=== PATIENT | male | born 1985 | race Caucasian/White ===

== ENCOUNTER 2017-08-31 01:07 | Emergency (ER) | payer SELFPAY ==
[~2017-08-31] VITALS: Ht 172.7 cm; Wt 77.1 kg
[~2017-08-31 01:07] MED LIST: AUGMENTIN 875875 MG PO; FLEXERIL10 MG PO; MEDROL DOSEPAK4 MG PO; MOTRIN800 MG PO; PREDNISONE50 MG PO
[2017-08-31 02:25] LABS: BASO # 0.1 10*3/uL (0.0-0.1); BASO % 0.5 % (0.0-1.0); EOS # 0.1 10*3/uL (0.0-0.4); EOS % 0.5 % (1.0-4.0); HEMATOCRIT 42.3 % (42.0-52.0); HEMOGLOBIN 14.9 g/dl (14.0-18.0); LYMPH # 1.3 10*3/uL (1.3-4.4); LYMPH % 10.1 % (27.0-41.0); MEAN CELL VOLUME 86.3 fl (80.0-94.0); MEAN CORPUSCULAR HGB 30.4 pg (27.0-31.0); MEAN CORPUSCULAR HGB CONC 35.2 g/dl (33.0-37.0); MEAN PLATELET VOLUME 10.4 fl (9.6-12.3); MONO # 0.7 10*3/uL (0.1-1.0); MONO % 5.4 % (3.0-9.0); NEUT # 10.8 10*3/uL (2.3-7.9); NEUT % 83.3 % (47.0-73.0); PLATELET COUNT AUTOMATED 267 10*3/uL (130-400)
[2017-08-31 02:36] LABS: ACT PARTIAL THROMBO TIME 23.1 SECONDS (20.8-31.5)
[2017-08-31 02:39] LABS: ALBUMIN 4.1 gm/dl (3.1-4.5); ALKALINE PHOSPHATASE 46 U/L (45-117); BUN 8 mg/dl (7-24); CHLORIDE 111 mmol/L (98-107); CREATININE 0.98 mg/dL (0.70-1.30); LIPASE 298 U/L (73-393); POTASSIUM 3.8 mmol/L (3.5-5.1); SGOT/AST 11 IU/L (3-35); SGPT/ALT 23 U/L (12-78); SODIUM 147 mmol/L (136-145); TOTAL PROTEIN 7.1 gm/dL (6.4-8.2)
[2017-08-31 03:30] LABS: BILIRUBIN NEGATIVE (NEGATIVE); BLOOD NEGATIVE (NEGATIVE); CLARITY CLEAR (CLEAR); COLOR YELLOW (YELLOW); GLUCOSE NEGATIVE (NEGATIVE); KETONE NEGATIVE (NEGATIVE); LEUKO ESTERASE NEGATIVE (NEGATIVE); NITRITE NEGATIVE (NEGATIVE); UROBILINOGEN 0.2 E.U./dl (0.2-1.0)
[2017-08-31] MEDS ORDERED: KETOROLAC10 MG PO (07:16)
[2017-08-31] MEDS ORDERED: Orphenadrine C100 MG PO (07:16)
== END 2017-08-31 08:46 | disposition home or self-care (01) ==
LOC: ED 01:07
PROVIDERS: Emergency Medicine Emergency Medical Services
DX: S02.2XXA Fracture of nasal bones, initial encounter for closed fracture (principal); S02.5XXA Fracture of tooth (traumatic), initial encounter for closed fracture; S01.112A Laceration without foreign body of left eyelid and periocular area, initial encounter; F10.129 Alcohol abuse with intoxication, unspecified; W10.9XXA Fall (on) (from) unspecified stairs and steps, initial encounter; Y93.89 Activity, other specified; Y92.89 Other specified places as the place of occurrence of the external cause; Y99.8 Other external cause status

== ENCOUNTER 2017-09-06 15:49 | Emergency (ER) | payer SELFPAY ==
[~2017-09-06] VITALS: Ht 170.1 cm; Wt 83.9 kg
[~2017-09-06 15:49] MED LIST changes: +KETOROLAC10 MG PO; +Orphenadrine C100 MG PO
== END 2017-09-06 16:33 | disposition home or self-care (01) ==
LOC: ED 15:49
DX: S01.112D Laceration without foreign body of left eyelid and periocular area, subsequent encounter (principal); R03.0 Elevated blood-pressure reading, without diagnosis of hypertension; Z48.02 Encounter for removal of sutures; X58.XXXD Exposure to other specified factors, subsequent encounter

== ENCOUNTER 2018-01-13 15:28 | Emergency (ER) | payer SELFPAY ==
[~2018-01-13] VITALS: Ht 170.1 cm; Wt 77.1 kg
[2018-01-13] MEDS ORDERED: MEDROL DOSEPAK4 MG PO (16:49)
[2018-01-13] MEDS ORDERED: CYCLOBENZAPRINE5 M3 PO (16:49)
== END 2018-01-13 16:53 | disposition left against medical advice (07) ==
LOC: ED 15:28
DX: M54.5 Low back pain (principal)

== ENCOUNTER 2018-09-22 10:34 | Emergency (ER) | payer SELFPAY ==
[~2018-09-22 10:34] MED LIST changes: +CYCLOBENZAPRINE5 M3 PO
[2018-09-22] MEDS ORDERED: PREDNISONE20 M1 PO (11:07)
[2018-09-22] MEDS ORDERED: NAPROSYN500 MG PO (11:07)
[2018-09-22] MEDS ORDERED: ROBAXIN500 M1 PO (11:07)
== END 2018-09-22 11:35 | disposition home or self-care (01) ==
LOC: ED 10:34
DX: S39.012A Strain of muscle, fascia and tendon of lower back, initial encounter (principal); X50.9XXA Other and unspecified overexertion or strenuous movements or postures, initial encounter; Y93.K1 Activity, walking an animal; Y92.89 Other specified places as the place of occurrence of the external cause; Y99.8 Other external cause status

== ENCOUNTER 2018-11-28 10:33 | Emergency (ER) | payer SELFPAY ==
[~2018-11-28] VITALS: Ht 172.7 cm; Wt 86.2 kg
[~2018-11-28 10:33] MED LIST changes: +NAPROSYN500 MG PO; +PREDNISONE20 M1 PO; +ROBAXIN500 M1 PO
[2018-11-28] MEDS ORDERED: ROBAXIN500 M1 PO (11:17)
[2018-11-28] MEDS ORDERED: MEDROL DOSEPAK4 MG PO (11:17)
[2018-11-28] MEDS ORDERED: NAPROSYN500 MG PO (11:17)
== END 2018-11-28 11:45 | disposition home or self-care (01) ==
LOC: ED 10:33
DX: S39.012A Strain of muscle, fascia and tendon of lower back, initial encounter (principal); Z98.890 Other specified postprocedural states; W13.2XXA Fall from, out of or through roof, initial encounter; Y93.89 Activity, other specified; Y92.89 Other specified places as the place of occurrence of the external cause; Y99.8 Other external cause status

== ENCOUNTER 2019-05-08 19:05 | Emergency (ER) | payer SELFPAY ==
[~2019-05-08] VITALS: Ht 170.1 cm; Wt 81.6 kg
[2019-05-08] MEDS ORDERED: IBU800 MG PO (20:37)
[2019-05-08] MEDS ORDERED: CYCLOBENZAPRINE10 MG PO (20:37)
== END 2019-05-08 20:45 | disposition home or self-care (01) ==
LOC: ED 19:05
DX: M54.5 Low back pain (principal); G89.29 Other chronic pain; Z79.899 Other long term (current) drug therapy

== ENCOUNTER 2019-06-15 14:15 | Emergency (ER) | payer SELFPAY ==
[~2019-06-15] VITALS: Ht 172.7 cm; Wt 86.2 kg
[~2019-06-15 14:15] MED LIST changes: +CYCLOBENZAPRINE10 MG PO; +IBU800 MG PO
[2019-06-15] MEDS ORDERED: IBU800 MG PO (15:13)
== END 2019-06-15 15:15 | disposition home or self-care (01) ==
LOC: ED 14:15
DX: M54.5 Low back pain (principal); W17.89XA Other fall from one level to another, initial encounter; Y93.89 Activity, other specified; Y92.89 Other specified places as the place of occurrence of the external cause; Y99.8 Other external cause status

== ENCOUNTER 2020-03-02 18:40 | Emergency (ER) | payer SELFPAY ==
[~2020-03-02] VITALS: Ht 170.1 cm; Wt 90.7 kg
== END 2020-03-02 18:57 | disposition left against medical advice (07) ==
LOC: ED 18:40
DX: S49.91XA Unspecified injury of right shoulder and upper arm, initial encounter (principal); I10 Essential (primary) hypertension; Z53.21 Procedure and treatment not carried out due to patient leaving prior to being seen by health care provider; X58.XXXA Exposure to other specified factors, initial encounter; Y93.89 Activity, other specified; Y92.89 Other specified places as the place of occurrence of the external cause; Y99.8 Other external cause status

== ENCOUNTER 2020-03-26 05:04 | Emergency (ER) | payer SELFPAY ==
[~2020-03-26] VITALS: Ht 170.1 cm; Wt 85.3 kg
== END 2020-03-26 05:45 | disposition home or self-care (01) ==
LOC: ED 05:04
DX: R44.3 Hallucinations, unspecified (principal); Z53.29 Procedure and treatment not carried out because of patient's decision for other reasons

== ENCOUNTER 2020-03-27 12:32 | Emergency (ER) | payer SELFPAY ==
[~2020-03-27] VITALS: Ht 170.1 cm; Wt 77.1 kg
== END 2020-03-27 14:32 | disposition left against medical advice (07) ==
LOC: ED 12:32
DX: S00.211A Abrasion of right eyelid and periocular area, initial encounter (principal); Z53.21 Procedure and treatment not carried out due to patient leaving prior to being seen by health care provider; X58.XXXA Exposure to other specified factors, initial encounter; Y93.89 Activity, other specified; Y92.89 Other specified places as the place of occurrence of the external cause; Y99.8 Other external cause status

== ENCOUNTER 2020-03-27 15:28 | Emergency (ER) | payer SELFPAY ==
[2020-03-27 16:46] LABS: BASO # 0.1 10*3/uL (0.0-0.1); BASO % 0.5 % (0.0-1.0); EOS % 0.2 % (1.0-4.0); HEMATOCRIT 43.2 % (42.0-52.0); LYMPH # 1.6 10*3/uL (1.3-4.4); MEAN CELL VOLUME 89.1 fl (80.0-94.0); MEAN CORPUSCULAR HGB 30.1 pg (27.0-31.0); MEAN CORPUSCULAR HGB CONC 33.8 g/dl (33.0-37.0); MEAN PLATELET VOLUME 10.2 fl (9.6-12.3); MONO # 1.1 10*3/uL (0.1-1.0); MONO % 8.7 % (3.0-9.0); NEUT # 10.1 10*3/uL (2.3-7.9); NEUT % 78.2 % (47.0-73.0); PLATELET COUNT AUTOMATED 279 10*3/uL (130-400); RED BLOOD COUNT 4.85 10*6/uL (4.50-5.90); RED CELL DISTRI WIDTH 13.2 % (0-14.5); WHITE BLOOD COUNT 12.9 10*3/uL (4.8-10.8)
[2020-03-27 17:01] LABS: ALBUMIN 4.9 gm/dl (3.1-4.5); ALKALINE PHOSPHATASE 68 U/L (45-117); BUN 18 mg/dl (7-24); CHLORIDE 106 mmol/L (98-107); CREATININE 1.09 mg/dL (0.70-1.30); POTASSIUM 3.4 mmol/L (3.5-5.1); SGOT/AST 24 IU/L (3-35); SGPT/ALT 30 U/L (12-78); SODIUM 136 mmol/L (136-145); TOTAL PROTEIN 8.5 gm/dL (6.4-8.2)
[2020-03-27 17:03] LABS: ETHYL ALCOHOL < 3.0 mg/dl (<3)
[2020-03-27 17:39] LABS: URINE AMPHETAMINES < 1000 (1000ng/ml); URINE BARBITURATES < 200 (200ng/ml); URINE BENZODIAZEPINES < 200 (200ng/ml); URINE CANNABINOIDS (THC) > 50 (50ng/ml); URINE COCAINE < 300 (300ng/ml); URINE METHADONE < 300 (300ng/ml); URINE OPIATES < 300 (300ng/ml); URINE PHENCYCLIDINE < 25 (25ng/ml)
[2020-03-27 20:06] LABS: ACETAMINOPHEN (TYLENOL) < 5.0 ug/ml (10-30)
[2020-03-27 20:09] LABS: BILIRUBIN NEGATIVE (NEGATIVE); BLOOD NEGATIVE (NEGATIVE); CLARITY CLEAR (CLEAR); COLOR YELLOW (YELLOW); GLUCOSE NEGATIVE (NEGATIVE); KETONE NEGATIVE (NEGATIVE); LEUKO ESTERASE NEGATIVE (NEGATIVE); NITRITE NEGATIVE (NEGATIVE); RBC 0-2 rbc/hpf (0-2); UROBILINOGEN 0.2 E.U./dl (0.2-1.0); WBC 0-2 wbc/hpf (0-5)
== END 2020-03-30 13:17 | disposition short-term general hospital (02) ==
LOC: ED 15:28
PROVIDERS: Emergency Medicine
DX: F23 Brief psychotic disorder (principal); I10 Essential (primary) hypertension